=== PATIENT | female | born 1990 | race Two or more races ===

== ENCOUNTER 2021-11-15 13:49 | Emergency (ER) | payer OTHER ==
[~2021-11-15] VITALS: Ht 160 cm; Wt 59.9 kg
--- NOTE | 2021-11-15 13:55 | NUR ---
[id number] C/O HEAD LACERATION, LEFT SHOULDER AND KNEE ABRASIONS S/P FALLING WHILE RIDING A SCOOTER, DENIES LOC. VITALS ARE WITHIN NORMAL LIMITS. NO RESP DISTRESS NOTED.
[2021-11-15] MEDS ORDERED: TDAP [DIPH/PERTUSSIS/TET] 0.5 ML VIAL IM ONE ×2 (14:30→14:50)
[2021-11-15] MEDS ORDERED: LIDOCAINE 1%-EPI 1:100,000 20 ML VIAL TP ONE (14:30)
--- NOTE | 2021-11-15 15:12 | NUR ---
URINE COLLECTED AND SENT TO THE LAB
--- NOTE | 2021-11-15 15:14 | NUR ---
PT SIGNED PREGANANCY WAIVER, PT TRANSPORTED TO CT [facility]IA [facility]
--- NOTE | 2021-11-15 15:15 | NUR ---
THE PATIENT IS TAKEN TO CT [facility]IA [facility]
[2021-11-15] MEDS ORDERED: KETOROLAC TROMETHAMINE INJ 60 MG/2 ML VIAL IM ONE (15:30)
[2021-11-15 15:35] LABS: BILIRUBIN,URINE NEGATIVE (NEGATIVE); COLOR,URINE YELLOW (YELLOW); LEUKOCYTE ESTERASE ,URINE NEGATIVE (NEGATIVE); NITRITE, URINE NEGATIVE (NEGATIVE); PROTEIN,URINE NEGATIVE (NEGATIVE); UGLUCOSE NEGATIVE (NEGATIVE); UROBILINOGEN,URINE 0.2 EU/dL (0.2)
[2021-11-15] MEDS ORDERED: KETOROLAC TROMETHAMINE INJ 30 MG/ML VIAL ONE (15:36)
[2021-11-15] MEDS ORDERED: LIDOCAINE 1%-EPI 1:100,000 20 ML VIAL ONE (16:03)
[2021-11-15] MEDS ORDERED: ONDA4TAB5 PO (17:22)
[2021-11-15] MEDS ORDERED: CLIN300C12 PO (17:22)
[2021-11-15] MEDS ORDERED: MUPI22OI7 TP (17:23)
[2021-11-15] MEDS ORDERED: SILV20CR13 TP (17:23)
--- NOTE | 2021-11-15 17:31 | NUR ---
Patient discharged to home in stable condition. Written and verbal after care instructions given. Patient verbalizes understanding of instruction.
[2021-11-15 17:32] VITALS: BP 132/72
== END 2021-11-15 17:32 | disposition home or self-care (01) ==
LOC: ER 13:53
DX: S01.01XA Laceration without foreign body of scalp, initial encounter (principal); Z88.8 Allergy status to other drugs, medicaments and biological substances; Z79.899 Other long term (current) drug therapy; W18.30XA Fall on same level, unspecified, initial encounter; Y93.89 Activity, other specified; Y92.89 Other specified places as the place of occurrence of the external cause; Y99.8 Other external cause status
CPT/HCPCS: 12002; 70450; 71045; 73030; 73100; 81003; 84703; 90471; 90715; 96372; 99285; A6403; J1885; J3490